=== PATIENT | male | born 1945 ===

== ENCOUNTER 2017-01-11 16:01 | Emergency (ER) | payer SELFPAY ==
[~2017-01-11] VITALS: Ht 185.4 cm; Wt 158.0 kg
[2017-01-11 16:04] VITALS: TEMP 36.7
[2017-01-11] MEDS ORDERED: PROPARACAINE HCL 0.5% OP SOLN 15 ML BTL ONE (16:23)
[2017-01-11 16:30] VITALS: Ht 185.4 cm; Wt 158.0 kg
[2017-01-11] MEDS ORDERED: LISI2.5T5 PO (16:33)
[2017-01-11] MEDS ORDERED: LPR25 PO (16:33)
[2017-01-11] MEDS ORDERED: FURO80TA63 PO (16:33)
[2017-01-11] MEDS ORDERED: TAMS0.4C38 PO (16:33)
[2017-01-11] MEDS ORDERED: LOVA20TA4 PO (16:33)
[2017-01-11] MEDS ORDERED: POTA20TA16 PO (16:33)
[2017-01-11] MEDS ORDERED: OMEP20TA PO (16:36)
[2017-01-11] MEDS ORDERED: CHOL1TAB42 PO (16:36)
[2017-01-11] MEDS ORDERED: GEMF600T3 PO (16:36)
[2017-01-11] MEDS ORDERED: CLR10 PO (16:36)
[2017-01-11] MEDS ORDERED: WARF5TAB7 PO (16:40)
[2017-01-11] MEDS ORDERED: SERT50TA PO (16:40)
[2017-01-11] MEDS ORDERED: CYAN100020 PO (16:40)
[2017-01-11] MEDS ORDERED: OMEG10007 PO (16:43)
[2017-01-11] MEDS ORDERED: FINA5TAB PO (16:43)
[2017-01-11] MEDS ORDERED: MULT-1093 PO (16:43)
[2017-01-11] MEDS ORDERED: GLUC1CAP33 PO (16:43)
[2017-01-11] MEDS ORDERED: PAIN PILL PO (16:45)
[2017-01-11] MEDS ORDERED: METO25TA3 PO (16:55)
[2017-01-11] MEDS ORDERED: MAGN500T4 PO (16:55)
[2017-01-11 17:23] LABS: ISTAT CREATININE 0.7 mg/dl (0.6-1.3); ISTAT HEMOGLOBIN 15.3 g/dl (14.0-18.0); ISTAT IONIZED CALCIUM 1.21 mmol/l (1.12-1.32)
[2017-01-11 17:53] VITALS: BP 156/83; PULSE 72; O2SAT 95
[2017-01-11] MEDS ORDERED: VALA1TAB31 PO (18:04)
[2017-01-11] MEDS ORDERED: CEPH500C PO (18:04)
--- NOTE | 2017-01-11 18:05 | EMERGENCY ROOM VISIT NOTE ---
History Report prepared by Pina: Xin Tom Under the Supervision of: Dr. Andrew Sanchez D.O. First contact with patient: 16:09 Chief Complaint: EYE ASSESSMENT Stated Complaint: LEFT EYE IRRITATION, SWELLING & HEADACHE, BURNING History of Present Illness The patient is a 71 year old male who presents to the Emergency Room with complaints of constant left eye pain beginning 1 week ago. The patient states that 1 week ago he began having eye secretions and would wake up with it stuck shut and crusty. He notes that his eye has been red and irritated and ortiz when he touches it. He reports that eye drops relieved his symptoms intermittently but the redness and irritation has not stopped recurring. The patient complains of a constant headache that began one week ago and eye swelling. He notes that he has a slight rash on his face in multiple areas and states that his symptoms significantly worsened today . The patient sates that he was seen at [facility] and they told him to come here to be seen by an managing consultant clinical professor. He notes that he has had a shingles vaccination. Source of History: patient Onset: 1 week ago Position: eye (left) Quality: burning Timing: constant Modifying Factors (Relieving): other (eye drops) Associated Symptoms: + headache, + rash Note: Pt complains of swelling, irritation, crusting, secretions, and burning. Review of Systems See HPI for pertinent positives & negatives. A total of 10 systems reviewed and were otherwise negative. Past Medical & Surgical Medical Problems: (1) CAD (coronary artery disease) Family History No pertinent family history stated. Social History Smoking Status: Never Smoker Marital Status: Housing Status: lives with significant other Current/Historical Medications Scheduled Cephalexin Monohydrate (Keflex), 500 MG PO QID Cholecalciferol (Vitamin D), 5,000 UNITS PO HS Cyanocobalamin (Vitamin B12), 2,500 MCG PO FRI Finasteride (Proscar), 5 MG PO QAM Fish Oil ([place]-3), 1 CAP PO QAM Furosemide (Lasix), 1 TAB PO QAM Gemfibrozil (Lopid), 2 TAB PO BID Glucosamine-Chondroitin (Glucosamine & Chondroitin 500-400 mg), 2 CAP PO BID Lisinopril (Lisinopril), 2.5 MG PO BID Loratadine (Claritin), 10 MG PO HS Lovastatin (Mevacor), 20 MG PO HS Metoprolol Succ (Toprol Xl) (Toprol-Xl), 25 MG PO HS Multiple Vitamins W/ Minerals (Centrum Silver 50+Men), 1 TAB PO QAM Omeprazole (Omeprazole), 1 TAB PO BID Potassium Ext Rel (Klor-Con), 20 MEQ PO DAILY Sertraline (Zoloft), 1 TAB PO BID Tamsulosin Hcl (Flomax), 0.4 MG PO HS Valacyclovir Hcl (Valtrex), 1 TAB PO TID Warfarin Sod (Jantoven), 10 MG PO HS Scheduled PRN Magnesium Oxide (Mg Supplement (Magnesium), Unknown Dose PO Q2D PRN for JOINT PAIN [Pain Pill], 1-2 TAB PO Q4H PRN for Pain Allergies Coded Allergies: No Known Allergies (Unverified , 01/11/17) Physical Exam Vital Signs Date Time Temp Pulse Resp B/P (MAP) Pulse Ox O2 Delivery O2 Flow Rate FiO2 01/11/17 17:53 72 18 156/83 95 Room Air 01/11/17 16:04 36.7 74 18 144/70 95 Room Air Physical Exam CONSTITUTIONAL/VITAL SIGNS: Reviewed / noted above. GENERAL: Non-toxic in appearance. INTEGUMENTARY: Warm, dry, and [place]. HEAD: There is some mild periorbital edema, there is a small area of redness or erythema to the left lateral upper eyebrow, there are several red pabon on the left forehead that are punctate but described as tender by the patient. No significant tenderness to palpation of the left temporal artery. EYES: EOMI without discomfort, Pt reports grossly normal vision. ANTONY. ENT/OROPHARYNX: clear and moist. LYMPHADENOPATHY/NECK: Is supple without lymphadenopathy or meningismus. RESPIRATORY: Lungs clear and equal. CARDIOVASCULAR: Regular rate and rhythm. GI/ABDOMEN: Soft and nontender. No organomegaly or pulsatile mass. No rebound or guarding. Normal bowel sounds. EXTREMITIES: Warm and well perfused. BACK: No CVA tenderness. NEUROLOGICAL: Intact without focal deficits. PSYCHIATRIC: normal affect. MUSCULOSKELETAL: Normally developed with good muscle tone. Medical Decision & Procedures Laboratory Results Test 01/11/17 17:10 01/11/17 17:32 Bedside Hemoglobin 15.3 g/dl (14.0-18.0) Bedside Hematocrit 45 % (42-52) Bedside Sodium 140 mEq/L (135-144) Bedside Potassium 3.8 mEq/L (3.3-5.0) Bedside Chloride 105 mEq/L (101-112) Bedside Total CO2 22 mEq/l (24-31) Anion Gap 17.0 mmol/L (16-25) Bedside Blood Urea Nitrogen 14 mg/dl (7-18) Bedside Creatinine 0.7 mg/dl (0.6-1.3) Bedside Glucose (other) 137 mg/dl (70-99) Bedside Ionized Calcium (Kraig) 1.21 mmol/l (1.12-1.32) Erythrocyte Sedimentation Rate 14 mm/hr (0-14) Laboratory results as stated above per my review. Medications Administered Medications (Trade) Dose Ordered Sig/Samantha Route Start Time Stop Time Status Last Admin Dose Admin Proparacaine HCl (Alcaine 0.5% Oph Soln) 225 drops STK-MED ONCE .ROUTE 01/11/17 16:23 01/11/17 16:24 DC 01/11/17 16:29 225 DROPS Procedure Slit Lamp Examination Indication: Eyeball Issue The left eye was prepped with topical proparacaine. Slit lamp examination was performed in the standard fashion. Cornea appeared clear. Anterior chamber clear. Scleral injection not present. No discharge present. Fluorescein examination performed and revealed no fluorescein uptake or dendritic patterns. No foreign bodies noted. Negative Cali sign. The patient tolerated the procedure well without complication. Ocular pressures checked with an average of 20-21. ED Course 1609: Previous medical records were reviewed. The patient was evaluated in room B2. A complete history and physical examination was performed. 1623: Proparacaine HCl 225 drops. 1744: I reevaluated the patient and performed a slit lamp exam. See procedure note. 1815: Valtrex Tab 500mg PO, Keflex Cap 500mg PO. 1818: On reevaluation, the patient is doing well. I discussed the results and findings with the patient. He verbalized agreement of the treatment plan. The patient was discharged home. Medical Decision Differential includes shingles, infection, foreign body, conjunctivitis, acute glaucoma. This is a 71-year-old male who presents to the ED with a chief complaint of left I discomfort and discharge as well as a left-sided headache. The patient has had the symptoms for about one week. He has some matting and irritation in the eye on the left this morning. He also complains of some sensitivity and irritation of the left side of his skin in the forehead region and scalp. The patient is chronically on Coumadin. He was seen at a walk-in clinic and then referred here. The walk-in clinic was concerned about orbital cellulitis. The patient's exam did not reveal any discomfort with extraocular motion. He reports that his vision is intact and normal. There is some mild edema to the left periorbital region. There is some mild erythematous rash in the left upper lateral eyelid smaller than the size of a dime. There is also a few punctate erythematous papules in the left scalp region near the forehead that he reports is sensitive to palpation. He has no other abnormalities noted on exam. There is no lesions on the nose or left ear. The patient's exam was otherwise unremarkable. I did evaluate him under slit lamp exam and did not see any fluorescein staining, foreign bodies or other abnormalities. The ocular pressure was measured to be 21-22. Sedimentation rate was normal. PRP was unremarkable. After evaluation, I feel the symptoms are likely related to either a mild cellulitis of the upper eyelid versus shingles. He does report having had the shingles shot. This could be a mild case of shingles but it does not appear to affect the eye itself. He was discharged on Valtrex, Keflex as well as Ocuflox. I did recommend follow-up with his PCP and a local electronic publications specialist this week. Medication Reconcilliation Current Medication List: was personally reviewed by me Blood Pressure Screening Patient's blood pressure: Elevated blood pressure Blood pressure disposition: Elevated BP felt to be situational Impression Primary Impression: Cellulitis Additional Impression: Shingles Scribe Attestation The scribe's documentation has been prepared under my direction and personally reviewed by me in its entirety. I confirm that the note above accurately reflects all work, treatment, procedures, and medical decision making performed by me. Departure Information Dispostion Home / Self-Care Prescriptions Cephalexin Monohydrate (Keflex) 500 Mg Cap 500 MG PO QID, #28 CAP Prov: Andrew Sanchez D.O. 01/11/17 Valacyclovir Hcl (VALTREX) 1 Gm Tab 1 TAB PO TID for 7 Days, #21 TAB Prov: Andrew Sanchez D.O. 01/11/17 Referrals Matti Hall M.D. (PCP) Forms HOME CARE DOCUMENTATION FORM, IMPORTANT VISIT INFORMATION, WORK / SCHOOL INSTRUCTIONS Patient Instructions [facility], Shingles Herpes Zoster Additional Instructions Valtrax as prescribed. Keflex as prescribed. Ocuflox eyedrops: 1-2 drops in the affected eye every 4 hours for the next 3 days. Follow-up with a localized specialist for recheck of your eye. Follow-up with your family doctor for recheck this week as well. Problem Qualifiers
[2017-01-11] MEDS ORDERED: CEPHALEXIN MONOHYDRATE 250 MG CAP PO ONE (18:15)
[2017-01-11] MEDS ORDERED: FLURBIPROFEN 0.03% OP ONE (18:45)
== END 2017-01-11 18:44 | disposition home or self-care (01) ==
LOC: C.EDB 16:05
DX: L03.90 Cellulitis, unspecified (principal); B02.9 Zoster without complications; I25.10 Atherosclerotic heart disease of native coronary artery without angina pectoris; Z79.01 Long term (current) use of anticoagulants